=== PATIENT | male | born 1980 | race Caucasian/White ===

== ENCOUNTER 2017-03-02 18:21 | Emergency (ER) | payer OTHER ==
[~2017-03-02] VITALS: Ht 177.8 cm; Wt 122.5 kg
[2017-03-02 18:52] LABS: ABSOLUTE BASOPHIL COUNT 0.1 /CUMM (0.0-0.2); ABSOLUTE EOSINOPHIL COUNT 0.3 /CUMM (0.0-0.7); ABSOLUTE GRANULOCYTE CT 3.4 /CUMM (1.4-6.5); ABSOLUTE MONOCYTE COUNT 0.5 /CUMM (0.10-0.60); BASOPHIL % 0.7 % (0.0-2.0); EOSINOPHIL % 4.1 % (0-5); GRANULOCYTE % 47.3 % (42.2-75.2); HEMATOCRIT 44.4 % (42-52); MEAN CORPUSCULAR HGB 28.6 PG (27.0-31.0); MEAN CORPUSCULAR VOLUME 86.5 FL (80.0-94.0); MEAN PLATELET VOLUME 8.3 FL (7.4-10.4); PLATELET COUNT 353 /CUMM (130-400); RBC DISTRIBUTION WIDTH 13.3 % (11.5-14.5); RED BLOOD CELL CT 5.13 /CUMM (4.70-6.10); WHITE BLOOD CELL COUNT 7.3 /CUMM (4.8-10.8)
--- NOTE | 2017-03-02 19:35 | RADIOLOGY REPORT ---
EXAMINATION: XR CHEST CLINICAL INFORMATION: Chest pressure. Reported history of a pulmonary emboli. COMPARISON: No relevant prior studies are available for comparison. TECHNIQUE: PA and lateral views of the chest were obtained. FINDINGS: The lungs are clear. The cardiomediastinal silhouette is normal in size. There is no pleural effusion or pneumothorax. No acute osseous abnormality. IMPRESSION: No acute cardiopulmonary disease.
[2017-03-02] MEDS ORDERED: XARELTO20 M2 PO (20:01)
[2017-03-02] MEDS ORDERED: TUMS X-STR300 MG PO (20:01)
--- NOTE | 2017-03-02 20:29 | ED GENERAL ADULT ---
History of Present Illness General Chief Complaint: Chest Pain Stated Complaint: CHEST TIGHTNESS Source: patient Exam Limitations: no limitations Vital Signs & Intake/Output Vital Signs & Intake/Output Vital Signs Date Time Temp Pulse Resp B/P B/P Pulse O2 O2 Flow FiO2 Mean Ox Delivery Rate 03/02 2023 97.2 110 19 139/89 97 Room Air 03/02 1833 97.9 92 15 192/104 99 Room Air Room Air Allergies Coded Allergies: Iodine and Iodide Containing Produc (Severe, ANAPHYLAXIS 03/02/17) shellfish derived (Severe, ANAXPHYLAXIS 03/02/17) Reconcile Medications Calcium Carbonate (Tums X-Str) 300 MG CALCIUM (750 MG) TAB.CHEW 2-4 TAB PO PRN GI (Reported) Rivaroxaban (Xarelto) 20 MG TABLET 1 TAB PO DAILY BLOOD THINNER (Reported) with food Triage Note: PT TO ED FOR C/C OF CHEST PRESSURE THAT STARTED TODAY AROUND NOON WHILE WATCHING TV. PT REPORTS HE FELT THE CHEST PRESSURE, THEN HIS HEART RATE WENT TO 130, HE BECAME SWEATY AND SLIGHTLY SOB. HX OF PE AND CURRENTLY ON XARELTO. PT HYPERTENSIVE ON ARRIVAL. DR. JUAREZ AWARE AND ORDERS PLACED PER DR. JUAREZ. Triage Nurses Notes Reviewed? yes Onset: Gradual Duration: hour(s): Timing: multiple episodes today Severity: moderate Severity Numbers: 6 Modifying Factors: Worsens With: other (smoking). 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 The patient stats pain is located in his left chest with radiation to his right upper arm and jaw. Pain is describes as "someone sitting on chest" and pressure at 6/10. Pain has been intermittent, not relieved by anything, worsened by smoking a cigarette today. This chest pain feel different than his pain with previous PEs. Previous PEs where in 2011 and 2014, patient is on xarelto. Patient also c/o intermittent palpitations for the past week and increased HR in the 130's during his chest pains. CP is associated with dyspnea, diaphoresis. He denies visual changes, abdominal pain, recent illness, nausea, vomiting, leg swelling, cough, hemoptysis. (LAM HSU,ARIK) Past History Travel History Traveled to [place] past 21 day No Medical History Any Pertinent Medical History? 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 Yes (ARIK FRITZ PA-C) Review of Systems Review of Systems Constitutional: Reports: see HPI. EENTM: Reports: no symptoms. Respiratory: Reports: see HPI. Cardiovascular: Reports: see HPI. GI: Reports: no symptoms. Genitourinary: Reports: no symptoms. Musculoskeletal: Reports: no symptoms. Skin: Reports: no symptoms. Neurological/Psychological: Reports: no symptoms. Hematologic/Endocrine: Reports: no symptoms. Immunologic/Allergic: Reports: no symptoms. All Other Systems: Reviewed and Negative (ARIK FRITZ PA-C) Physical Exam Physical Exam General Appearance: well developed/nourished, no apparent distress, alert, awake Head: atraumatic, normal appearance Eyes: Bilateral: normal appearance, EOMI. Ears, Nose, Throat: hearing grossly normal Neck: normal inspection, supple, full range of motion Respiratory: no respiratory distress, decreased breath sounds at lung apexs bilaterally Cardiovascular: regular rate/rhythm Gastrointestinal: normal bowel sounds, soft, non-tender Back: normal inspection, normal range of motion Extremities: normal inspection, normal range of motion, no edema Neurologic/Psych: awake, alert, oriented x 3 Skin: intact, normal color Core Measures ACS in differential dx? Yes CVA/TIA Diagnosis: No Severe Sepsis Present: No Septic Shock Present: No (ARIK FRITZ PA-C) Progress Differential Diagnoses I considered the following diagnoses in my evaluation of the patient: [ACS, PE, angina, chostochondritis, pericarditis] Initial ED EKG: sinus at 96bpm, normal axis Repeat EKG: unchanged (sinus at 68bpm) Hand-Off Endorsed To: ELIO OJEDA Endorsed Time: 2203 Pending: labs (repeat troponin) Comments: Repeat EKG unchanged, repeat troponin is pending (ARIK FRITZ PA-C) Plan of Care: Orders Procedure Date/time Status TROPONIN LEVEL 03/02 2140 Active EKG 03/02 2140 Active Add-on Test (ER Only) 03/02 2045 Active TROPONIN LEVEL 03/02 183 Complete D-DIMER 03/02 1836 Complete COMPREHENSIVE METABOLIC PANEL 03/02 1836 Complete CBC WITHOUT DIFFERENTIAL 03/02 1836 Complete EKG 03/02 182 Active THYROID STIMULATING HORMONE 03/02 1743 Complete Laboratory Tests 03/02/172137: Troponin I Pending 03/02/171742: Anion Gap 13, Estimated GFR > 60, BUN/Creatinine Ratio 12.5, Glucose 93, Calcium 10.6 H, Total Bilirubin 0.5, AST 36, ALT 62, Alkaline Phosphatase 63, Troponin I < 0.01, Total Protein 7.1, Albumin 4.7, Globulin 2.4, Albumin/Globulin Ratio 2.0, TSH 1.140, D-Dimer High Sensitivty < 200, CBC w Diff NO MAN DIFF REQ, RBC 5.13, MCV 86.5, MCH 28.6, RDW 13.3, MPV 8.3, Gran % 47.3, Lymphocytes % 40.5, Monocytes % 7.4, Eosinophils % 4.1, Basophils % 0.7, Absolute Granulocytes 3.4, Absolute Lymphocytes 3.0, Absolute Monocytes 0.5, Absolute Eosinophils 0.3, Absolute Basophils 0.1, PUBS MCHC 33.0 Patient has significant history of two prior PEs and Protein S deficiency. His first troponin is negative, D-dimer is negative, no unilateral leg swelling. He currently is not complaining of symptoms, no Chest pain or dyspnea however he did experience these symptoms while in the waiting room. His EKG is in sinus rhythm without ST abnormality. The patient was discussed with Dr. Nieto. Dr. Nieto evaluated patient at bedside. Low suspicion for PE at this time given current Xarelto therapy. 22:00 - repeat EKG is unchanged, normal sinus rhythm. Repeat troponin is pending. Patient will be signed out to PAMELLA Ortiz pending repeat troponin. If repeat troponin negative patient will follow up with cardiology out patient. (ARIK FRITZ PA-C) Differential Diagnoses I considered the following diagnoses in my evaluation of the patient: (ELIO OJEDA) Departure Departure Condition: Stable Referrals: SEFERINO DOWNS,LESLIE Mayo PATIENT HAS NO PRIMARY CARE DR (PCP/Family) Departure Forms: Customer Survey General Discharge Information (LAM HSU,ARIK) PA/PAPER STEAMER Co-Sign Statement Statement: ED Attending supervision documentation- [X] I saw and evaluated the patient. I have also reviewed all the pertinent lab results and diagnostic results. I agree with the findings and the plan of care as documented in the PA's/PAPER STEAMER's documentation. PT WITH BENIGN EXAM, REPRODUCIBLE LEFT SIDED CHEST WALL TENDERNESS TO PALPATION. trop neg x 2, ekg benign x2, pt wishes to go home. pt stable for discharge and will follow up with cardiology [] I have reviewed the ED Record and agree with the PA's/PAPER STEAMER's documentation. [] Additions or exceptions (if any) to the PAs/PAPER STEAMER's note and plan are summarized below: [] (OREN DOWNS,KEMAR Plummer) Departure Disposition: HOME OR SELF CARE Clinical Impression Primary Impression: Atypical chest pain Additional Instructions: Follow-up with gis physical scientist. Return if any concerns worsening symptoms. Please go over all results of today's visit with your primary care doctor. Contact your primary care doctor to let them know you were here in the emergency room. There may be nonspecific findings which may not be related to your visit today here in the emergency room but may require further evaluation and chronic monitoring by your primary care doctor. If you had a laceration today the chance of foreign body always remains. You should follow-up with your primary care doctor for recheck in 3-5 days for a wound check. If you had an x-ray done there is a chance that a fracture could have been missed on initial read and you should follow-up with your primary care doctor for repeat x-rays if symptoms persist. If your blood pressure was elevated here in the emergency room please have rechecked by her primary care doctor within the next 48 hours by your primary care doctor. If you were prescribed a narcotic here in the emergency room or any type of controlled substances you're not allowed to drive while taking this medication or operate any type of heavy machinery. Narcotics can make you feel lightheaded dizziness nausea and can cause constipation. You may need to leaf size picker a stool softener. Thank you for choosing [facility] emergency room. Please return to the emergency room immediately if you have any other concerns worsening of symptoms. (ELIO OJEDA) Critical Care Note Critical Care Note Critical Care Time: non-applicable (LAM HSU,ARIK)
[2017-03-02 22:44] VITALS: BP 146/90
== END 2017-03-02 22:47 ==
LOC: ERH 18:21
PROVIDERS: Emergency Medicine
DX: R07.89 Other chest pain (principal)
CPT/HCPCS: 93005; 93010

== ENCOUNTER 2018-01-06 21:34 | Emergency (ER) | payer OTHER ==
[~2018-01-06 21:34] MED LIST: TUMS X-STR300 MG PO; XARELTO20 M2 PO
--- NOTE | 2018-01-06 22:08 | ED CARDIAC/CP/PALPITATIONS ---
History of Present Illness General Chief Complaint: Chest Pain Stated Complaint: CHEST PAIN, PALP, TINGLES IN LEFT ARM Source: patient, family, old records Exam Limitations: no limitations Vital Signs & Intake/Output Vital Signs & Intake/Output Vital Signs Date Time Temp Pulse Resp B/P B/P Pulse O2 O2 Flow FiO2 Mean Ox Delivery Rate 01/07 0115 97.9 83 18 138/86 98 Room Air 01/06 2306 98.5 89 18 134/78 97 Room Air 01/06 2208 97.0 98 16 142/90 98 Room Air 01/06 2139 96.4 128 24 188/118 98 ED Intake and Output 01/07 0000 01/06 1200 Intake Total 0 Output Total Balance 0 Intake, Oral 0 Patient 230 lb Weight Allergies Coded Allergies: Iodine and Iodide Containing Produc (Severe, ANAPHYLAXIS 03/02/17) shellfish derived (Severe, ANAXPHYLAXIS 03/02/17) Reconcile Medications Calcium Carbonate (Tums X-Str) 300 MG CALCIUM (750 MG) TAB.CHEW 2-4 TAB PO PRN GI (Reported) Rivaroxaban (Xarelto) 20 MG TABLET 1 TAB PO DAILY BLOOD THINNER (Reported) with food Core Measure Meds Pre-Hospital xarelto Triage Note: PER PT FOR FEW MINUTES NOW PRESSURE TO [facility] WITH HIGH HR, HX OF CLOTTING DISORDER ON XARALTO, NO SOB WAS VOIDING WHEN SYMPTOMS STARTED Triage Nurses Notes Reviewed? yes Onset: Just prior to arrival Duration: minute(s):, constant, gone now Timing: recent history Quality/Severity: moderate, pressure Location: central Radiation: arms Activities at Onset: Sitting on toilet moving bowels Prior Chest Pain/Card Workup: pulmonary embolism Modifying Factors: Improves With: rest. Nitro Today/Relief: no nitro taken today Aspirin Today: no aspirin today Associated Symptoms: diaphoresis, dizziness HPI: Prior to admission while sitting in the toilet moving his bowels he reports having substernal chest pressure mild to moderate radiating to his left arm associated with dizziness diaphoresis resolving with rest none currently. Reports this is similar to previous anxiety episodes of more severe. He denies fever chills nausea vomiting diarrhea shortness of breath headache dysuria rash bleeding. Reports doing 40 jumping jacks at noon to begin weight loss. (Gilda DOWNS,Brayden) Past History Travel History Traveled to [place] past 21 day No Medical History Any Pertinent Medical History? 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 Yes (Brayden Vo MD) Review of Systems Review of Systems Constitutional: Reports: see HPI, diaphoresis. EENTM: Reports: no symptoms. Respiratory: Reports: no symptoms. Cardiovascular: Reports: see HPI, chest pain. GI: Reports: no symptoms. Genitourinary: Reports: no symptoms. Musculoskeletal: Reports: no symptoms. Skin: Reports: no symptoms. Neurological/Psychological: Reports: no symptoms. Hematologic/Endocrine: Reports: no symptoms. Immunologic/Allergic: Reports: no symptoms. All Other Systems: Reviewed and Negative (Brayden Vo MD) Physical Exam Physical Exam General Appearance: well developed/nourished, alert, awake, anxious, mild distress, obese Head: atraumatic, normal appearance Eyes: Bilateral: normal appearance, PERRL, EOMI. Ears, Nose, Throat: normal pharynx, normal ENT inspection, hearing grossly normal Neck: normal inspection, supple, full range of motion, no midline tenderness Respiratory: normal breath sounds, chest non-tender, no respiratory distress, quiet respiration, lungs clear Cardiovascular: regular rate/rhythm, normal peripheral pulses, norml femoral pulses equa Peripheral Pulses: 4+ carotid (R), 4+ carotid (L) Gastrointestinal: normal bowel sounds, soft, non-tender, no organomegaly Back: normal inspection, normal range of motion Extremities: normal inspection, normal capillary refill, normal range of motion, no edema Neurologic/Psych: no motor/sensory deficits, awake, alert, oriented x 3, normal gait, normal mood/affect, loan 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 Skin: intact, normal color, warm/dry Lymphatic: no anterior cervical veronique Core Measures ACS in differential dx? Yes No ASA d/t Pharmacological CI CVA/TIA Diagnosis No Sepsis Present: No Sepsis Focused Exam Completed? No (Brayden Vo MD) Progress Differential Diagnosis: CHF/pulm edema, costochondritis, hyperkalemia, pneumonia , pulmonary embolism Plan of Care: Orders Procedure Date/time Status TROPONIN LEVEL 01/07 50 Complete EKG 01/07 50 Active TROPONIN LEVEL 01/06 2143 Complete PROTHROMBIN TIME 01/06 2143 Complete D-DIMER 01/06 2143 Complete COMPREHENSIVE METABOLIC PANEL 01/06 2143 Complete CBC WITHOUT DIFFERENTIAL 01/06 2143 Complete EKG 01/06 2135 Active Laboratory Tests 01/07/18 0046: Troponin I < 0.01 01/06/182149: Anion Gap 14, Estimated GFR > 60, BUN/Creatinine Ratio 13.3, Glucose 130 H, Calcium 9.6, Total Bilirubin 0.6, AST 45, ALT 80 H, Alkaline Phosphatase 69, Troponin I < 0.01, Total Protein 7.5, Albumin 4.7, Globulin 2.8, Albumin/ Globulin Ratio 1.7, PT 11.5, INR 1.05, D-Dimer High Sensitivty < 200, CBC w Diff NO MAN DIFF REQ, RBC 5.40, MCV 85.8, MCH 28.5, MCHC 33.2, RDW 13.4, MPV 8.1, Gran % 38.7 L, Lymphocytes % 48.2, Monocytes % 9.6 H, Eosinophils % 2.9, Basophils % 0.6, Absolute Granulocytes 3.1, Absolute Lymphocytes 3.8 H, Absolute Monocytes 0.8 H, Absolute Eosinophils 0.2, Absolute Basophils 0 Diagnostic Imaging: Viewed by Me: Radiology Read. Discussed w/RAD: Radiology Read. CXR Impression: no acute abnormality, no infiltrates, Unremarkable examination. Initial ED EKG: normal axis, normal intervals, normal p-waves, normal QRS complex, normal sinus rhythm, rate (sinus tachycardia) Prior EKG: unchanged Rhythm Strip: normal sinus rhythm Hand-Off Endorsed To: Edil Nieto MD Endorsed Time: 2300 Pending: EKG, labs (Brayden Vo MD) Departure Departure Disposition: HOME OR SELF CARE Condition: Stable Clinical Impression Primary Impression: Chest pain syndrome Departure Forms: Customer Survey General Discharge Information (Brayden Vo MD) Departure Comments trop neg x 2, ekg benign x 2... pt is asymptomatic in the ED and is otherwise well, safe for discharge and will follow up with his pmd. (Emilia DOWNS,Edil Plummer) Critical Care Note Critical Care Note Critical Care Time: 30-74 min (35) (Gilda DOWNS,Brayden)
[2018-01-06 22:13] LABS: ABSOLUTE BASOPHIL COUNT 0 /CUMM (0.0-0.2); ABSOLUTE EOSINOPHIL COUNT 0.2 /CUMM (0.0-0.7); ABSOLUTE GRANULOCYTE CT 3.1 /CUMM (1.4-6.5); ABSOLUTE LYMPH COUNT 3.8 /CUMM (1.2-3.4); ABSOLUTE MONOCYTE COUNT 0.8 /CUMM (0.10-0.60); BASOPHIL % 0.6 % (0.0-2.0); EOSINOPHIL % 2.9 % (0-5); GRANULOCYTE % 38.7 % (42.2-75.2); HEMATOCRIT 46.3 % (42-52); MEAN CORPUSCULAR HGB 28.5 PG (27.0-31.0); MEAN CORPUSCULAR HGB CONC 33.2 G/DL (33.0-37.0); MEAN CORPUSCULAR VOLUME 85.8 FL (80.0-94.0); MEAN PLATELET VOLUME 8.1 FL (7.4-10.4); PLATELET COUNT 374 /CUMM (130-400); RBC DISTRIBUTION WIDTH 13.4 % (11.5-14.5); WHITE BLOOD CELL COUNT 7.9 /CUMM (4.8-10.8)
[2018-01-06 22:20] LABS: PT 11.5 SEC (9.4-12.5)
--- NOTE | 2018-01-06 22:26 | RADIOLOGY REPORT ---
EXAMINATION: XR PORTABLE CHEST CLINICAL INFORMATION: Chest pressure. COMPARISON: Chest x-ray 03/02/2017 TECHNIQUE: Portable frontal view of the chest was obtained. 9:49 PM FINDINGS: No significant abnormality is noted involving the heart, lungs, mediastinum, bony thorax or soft tissues. IMPRESSION: Unremarkable examination.
[2018-01-07 01:15] VITALS: BP 138/86
[2018-02-07] MEDS ORDERED: LABETALOL HCL200 M1 PO (00:53)
[2018-02-07] MEDS ORDERED: XARELTO20 M2 PO (00:53)
== END 2018-01-07 02:15 ==
LOC: ERH 21:34
PROVIDERS: Emergency Medicine
DX: R07.89 Other chest pain (principal)
CPT/HCPCS: 71045; 93005; 93010

== ENCOUNTER 2018-03-24 13:53 | Emergency (ER) | payer OTHER ==
[~2018-03-24] VITALS: Ht 177.8 cm; Wt 124.7 kg
[~2018-03-24 13:53] MED LIST changes: +LABETALOL HCL200 M1 PO
[2018-03-24 14:31] LABS: ABSOLUTE BASOPHIL COUNT 0.1 /CUMM (0.0-0.2); ABSOLUTE EOSINOPHIL COUNT 0.2 /CUMM (0.0-0.7); ABSOLUTE GRANULOCYTE CT 3.7 /CUMM (1.4-6.5); ABSOLUTE LYMPH COUNT 2.9 /CUMM (1.2-3.4); ABSOLUTE MONOCYTE COUNT 0.7 /CUMM (0.10-0.60); BASOPHIL % 0.7 % (0.0-2.0); EOSINOPHIL % 2.7 % (0-5); GRANULOCYTE % 48.6 % (42.2-75.2); HEMATOCRIT 46.2 % (42-52); MEAN CORPUSCULAR HGB 28.9 PG (27.0-31.0); MEAN CORPUSCULAR HGB CONC 34.2 G/DL (33.0-37.0); MEAN CORPUSCULAR VOLUME 84.6 FL (80.0-94.0); MEAN PLATELET VOLUME 7.9 FL (7.4-10.4); PLATELET COUNT 378 /CUMM (130-400); RBC DISTRIBUTION WIDTH 13.1 % (11.5-14.5); RED BLOOD CELL CT 5.46 /CUMM (4.70-6.10); WHITE BLOOD CELL COUNT 7.6 /CUMM (4.8-10.8)
[2018-03-24 14:41] LABS: PT 11.4 SEC (9.4-12.5); PTT 33 SEC (25-37)
--- NOTE | 2018-03-24 15:14 | RADIOLOGY REPORT ---
EXAMINATION: CHEST 2 VIEWS CLINICAL INFORMATION: Syncope. COMPARISON: 02/07/2018. TECHNIQUE: PA and lateral views of the chest were obtained. FINDINGS: The cardiac silhouette is not enlarged. The mediastinal and hilar contours are unremarkable. There are neither pleural effusions nor pneumothoraces. There are no consolidations. The osseous structures are unremarkable. IMPRESSION: No evidence for acute disease.
--- NOTE | 2018-03-24 17:25 | ED AMS/SEIZURE/WEAK/DIZZY ---
History of Present Illness General Chief Complaint: Dizziness Stated Complaint: DIZZY,NEAR SYNCOPE,SWEATY Source: patient Exam Limitations: no limitations Vital Signs & Intake/Output Vital Signs & Intake/Output Vital Signs Date Time Temp Pulse Resp B/P B/P Pulse O2 O2 Flow FiO2 Mean Ox Delivery Rate 03/24 1753 98.6 82 18 139/75 96 Room Air 03/24 1701 95 Room Air 03/24 1415 98.4 106 18 168/98 98 Room Air ED Intake and Output 03/25 0000 03/24 1200 Intake Total Output Total Balance Patient 275 lb Weight Weight Reported by Patient Measurement Method Allergies Coded Allergies: Iodine and Iodide Containing Produc (Severe, ANAPHYLAXIS 03/02/17) shellfish derived (Severe, ANAXPHYLAXIS 03/02/17) Reconcile Medications Calcium Carbonate (Tums X-Str) 300 MG CALCIUM (750 MG) TAB.CHEW 2-4 TAB PO PRN GI (Reported) Labetalol HCl 200 MG TABLET 1 TAB PO BID HIGH BLOOD PRESSURE Rivaroxaban (Xarelto) 20 MG TABLET 1 TAB PO DAILY BLOOD THINNER with food Triage Note: 37 YO MALE TO TRIAGE FOR EVAL OF LIGHTHEADNESS. REPORTS HE WAS SITTING ON HIS COUCH AND HE DIDNT FEEL WELL SO HE STOOD UP, REPORTS +SYNCOPLE EPISODE. PT DIAPHORETIC. DX OF PE/DVT, ON XARELTO. DENIES CHEST PAIN/SOB. +NAUSEA. EKG COMPELTED ON ARRIVAL. Triage Nurses Notes Reviewed? yes Onset: Abrupt Duration: intermittent Timing: single episode today Severity: moderate Severity Numbers: 5 HPI: Patient is a 37-year-old male with a past medical history of hypertension DVT PE currently on Xarelto who is compliant with his medications presents emergency room saying that today he was in his normal state health patient states that he was sitting on the couch felt a flushing sensation and palpitations stood up and had a single episode Patient denies any trauma to the episode and denies any tongue biting or bowel bladder incontinence after the event Patient states that this is now the third time this is occurred in the past 6 months however he has not followed up with a metalworker. Patient denies any illicit drug use denies smoking or alcohol. Denies any chest pain arm pain jaw pain however did feel nauseous earlier His symptoms have significantly improved. Denies any family history of cardiac disease (Kim CAN,José) Past History Travel History Traveled to [place] past 21 day No Medical History Any Pertinent Medical History? 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 No (José Albarran) Review of Systems Review of Systems Constitutional: Reports: no symptoms. EENTM: Reports: no symptoms. Respiratory: Reports: no symptoms. Cardiovascular: Reports: see HPI, syncope. GI: Reports: no symptoms. Genitourinary: Reports: no symptoms. Musculoskeletal: Reports: no symptoms. Skin: Reports: no symptoms. Neurological/Psychological: Reports: no symptoms. Hematologic/Endocrine: Reports: no symptoms. Immunologic/Allergic: Reports: no symptoms. All Other Systems: Reviewed and Negative (José Albarran) Physical Exam Physical Exam General Appearance: no apparent distress, obese Head: atraumatic Eyes: Bilateral: normal appearance, PERRL, EOMI. Ears, Nose, Throat: normal ENT inspection, hearing grossly normal Respiratory: normal breath sounds, chest non-tender, no respiratory distress Cardiovascular: regular rate/rhythm Gastrointestinal: normal bowel sounds, soft, non-tender Extremities: normal range of motion Neurologic/Psych: no motor/sensory deficits, awake, alert, oriented x 3 Skin: intact, normal color, warm/dry Core Measures ACS in differential dx? No CVA/TIA Diagnosis No Sepsis Present: No Sepsis Focused Exam Completed? No (José Albarran) Progress Differential Diagnosis: arrythmia, alcohol intoxication, anemia, benign positional vertigo, CVA/stroke, dehydration, drug intoxication, encephalitis, electrolyte imbalance, hypoglycemia, hypoxia, intracranial Hem., intracranial mass/tumor, labrynthitis, meningitis, Meniere's disease, migraine PATEL, multiple sclerosis, pneumonia, postural hypotension, presyncope, post-traumatic vertigo, sepsis, seizure disorder, subarachnoid Hem., vertebrobasilar insuff Plan of Care: Orders Procedure Date/time Status Add-on Test (ER Only) 03/24 1758 Active TROPONIN LEVEL 03/24 1751 Complete EKG 03/24 1751 Active THYROID STIMULATING HORMONE 03/24 1421 Complete THYROXINE 03/24 1421 Complete MAGNESIUM 03/24 1421 Complete LIPID PANEL 03/24 1421 Complete DIRECT LDL 03/24 1421 Complete DIRECT BILIRUBIN 03/24 1421 Complete CREATINE PHOSPHOKINASE 03/24 1421 Complete MISTAKE 03/24 1415 Active TROPONIN LEVEL 03/24 1415 Complete PARTIAL THROMBOPLASTIN TIME 03/24 1415 Complete PROTHROMBIN TIME 03/24 1415 Complete D-DIMER 03/24 1415 Complete COMPREHENSIVE METABOLIC PANEL 03/24 1415 Complete CBC WITHOUT DIFFERENTIAL 03/24 1415 Complete EKG 03/24 1355 Active Laboratory Tests 03/24/18 1825: Troponin I < 0.01 03/24/18 1421: Anion Gap 14, Estimated GFR > 60, BUN/Creatinine Ratio 13.8, Glucose 119 H, Calcium 10.2, Magnesium 1.9, Total Bilirubin 0.6, Direct Bilirubin 0.1, AST 39, ALT 76 H, Alkaline Phosphatase 68, Creatine Kinase 132, Troponin I < 0.01, Total Protein 7.7, Albumin 4.6, Globulin 3.1, Albumin/Globulin Ratio 1.5, Triglycerides 630 H, Cholesterol 276 H, LDL Cholesterol Direct 157.10 H, LDL Cholesterol, Calc ND, HDL Cholesterol 34 L, Cholesterol/HDL Ratio 8 H, TSH 1.600, Thyroxine (T4) 9.3, PT 11.4, INR 1.05, APTT 33, D-Dimer High Sensitivty < 200, CBC w Diff NO MAN DIFF REQ, RBC 5.46, MCV 84.6, MCH 28.9, MCHC 34.2, RDW 13.1, MPV 7.9, Gran % 48.6, Lymphocytes % 38.2, Monocytes % 9.8 H, Eosinophils % 2.7, Basophils % 0.7, Absolute Granulocytes 3.7, Absolute Lymphocytes 2.9, Absolute Monocytes 0.7 H, Absolute Eosinophils 0.2, Absolute Basophils 0.1 Patient upon initial presentation is resting comfortably bedside no apparent distress patient has unremarkable physical exam initial EKG was unremarkable blood work unremarkable minimal suspicion of PE d-dimer was negative patient has a low - medium Wells criteria scoring in which HIS PERC was negative essentially ruling out PE Patient has second set troponin and EKG that were unremarkable, most likely patient had vasovagal response however he was strongly advised to follow-up with an established cardiology Dr. Cardona. Upon discharge patient looks well no apparent distress patient had no symptoms Heart score 0 Diagnostic Imaging: Viewed by Me: Radiology Read, CT Scan. Radiology Impression: no acute abnormality, no fracture Initial ED EK BPM,NSR Prior EKG: unchanged Comments: PATIENT: MABEL ZAPATA PRESENT AGE: 37 PATIENT ACCOUNT NO: [id number] : 81 LOCATION: ER ORDERING PHYSICIAN: Sarah CAN SERVICE DATE: 03/24/18 EXAM TYPE: RAD - XRY-CHEST XRAY, TWO VIEWS EXAMINATION: CHEST 2 VIEWS CLINICAL INFORMATION: Syncope. COMPARISON: 02/07/2018. TECHNIQUE: PA and lateral views of the chest were obtained. FINDINGS: The cardiac silhouette is not enlarged. The mediastinal and hilar contours are unremarkable. There are neither pleural effusions nor pneumothoraces. There are no consolidations. The osseous structures are unremarkable. IMPRESSION: No evidence for acute disease. DICTATED BY: Jermain Rogers MD DATE/TIME DICTATED:03/24/181507 CAMERA PERSON:DICK DATE/TIME TRANSCRIBED:03/24/181507 PATIENT: MABEL ZAPATA PRESENT AGE: 37 PATIENT ACCOUNT NO: [id number] : 81 LOCATION: [facility] ORDERING PHYSICIAN: Terrie CAN SERVICE DATE: 03/24/18 EXAM TYPE: CAT - CT HEAD WO IV CONTRAST EXAMINATION: CT HEAD WITHOUT CONTRAST CLINICAL INFORMATION: Trauma to head. On Xarelto. COMPARISON: None. TECHNIQUE: Contiguous helical images of the brain were obtained without IV contrast. Multiplanar reconstructions were performed. DLP: 621 mGy-cm. FINDINGS: There are no pathologic extra-axial fluid collections. The lateral, third, fourth ventricles are nondilated and concordant with the appearance of the sulci. There is no evidence for acute intraparenchymal hemorrhage or infarct. There is neither mass nor mass effect. There is no shift of midline structures. The paranasal sinuses and mastoid air cells are clear. There are no osseous lesions. IMPRESSION: No evidence for acute intracranial injury. DICTATED BY: Jermain Rogers MD DATE/TIME DICTATED:03/24/181714 CAMERA PERSON:DICK DATE/TIME TRANSCRIBED:03/24/18 (José Albarran) Departure Departure Disposition: HOME OR SELF CARE Condition: Stable Clinical Impression Primary Impression: Vasovagal episode Referrals: Asiya Braden MD (PCP/Family) Frank Cardona MD Additional Instructions: As discussed continue all medications as directed, tomorrow please follow up with metalworker Dr. Cardona. If symptoms worsen return to emergency room Departure Forms: Customer Survey General Discharge Information (José Albarran) PA/PLANT ELECTRICIAN Co-Sign Statement Statement: ED Attending supervision documentation- [] I saw and evaluated the patient. I have also reviewed all the pertinent lab results and diagnostic results. I agree with the findings and the plan of care as documented in the PA's/PLANT ELECTRICIAN's documentation. [x] I have reviewed the ED Record and agree with the PA's/PLANT ELECTRICIAN's documentation. [] Additions or exceptions (if any) to the PAs/PLANT ELECTRICIAN's note and plan are summarized below: [] (Harris Day DO)
[2018-03-24 17:53] VITALS: BP 139/75
== END 2018-03-24 19:56 ==
LOC: ERH 13:53
PROVIDERS: Physician Assistant
DX: R55 Syncope and collapse (principal)
CPT/HCPCS: 71046; 93005; 93010; J3101